=== PATIENT | male | born 1970 | race Caucasian/White ===

== ENCOUNTER 2019-10-10 14:17 | Inpatient (IN) | payer BC ==
[~2019-10-10] VITALS: Ht 175.3 cm; Wt 108.2 kg
[2019-10-10] MEDS ORDERED: OMEPRAZOLE MAGN20 M1 PO (14:55)
[2019-10-10] MEDS ORDERED: AMLODIPINE BESYL5 MG PO (14:55)
[2019-10-10] MEDS ORDERED: ZESTRIL40 M1 PO (14:55)
[2019-10-10] MEDS ORDERED: EUTHYROX75 MC1 PO (14:56)
[2019-10-10] MEDS ORDERED: FENO160 PO (14:56)
--- NOTE | 2019-10-10 18:17 | NUR ---
PT ARRIVED TO ROOM PCU 7 AT 1705. ECHO DONE UPON ARRIVAL. DR RAJAN IN ROOM AT 1745. ASSESSMENT AND ADMISSION COMPLETED AT 1815. DINNER HERE ALSO AT 1815. FAMNILY AT BEDSIDE. ASSMENT NOTED. PT DENIES PN, NO COMPLAINTS AT THIS TIME. NO NEEDS, ORIENTED TO ROOM. CALL LIGHT IN [place]ach.
--- NOTE | 2019-10-10 19:23 | NUR ---
NO CHANGES SINCE ARRIVAL. PT ATE DINNER. SPOUSE HAD DINNER DELIVERED FOR HERSELF AND CHILDREN. STILL EATING WHEN BEDSIDE REPORT GIVEN TO DOMENICA ROJAS. CALL [facility] IN [place]ACH.
[2019-10-10 21:38] LABS: BASOPHILS ABSOLUTE AUTO 0.07 K/mm3 (0.00-0.23); BASOPHILS PERCENT AUTO 1 % (0-2); EOSINOPHILS ABSOLUTE AUTO 0.13 K/mm3 (0.00-0.68); EOSINOPHILS PERCENT AUTO 2 % (0-6); Hematocrit 45.8 % (37.0-53.0); Hemoglobin 15.6 g/dL (13.5-17.5); IMMATURE GRAN ABSOLUTE AUTO 0.03 K/mm3 (0.00-0.10); IMMATURE GRAN PERCENT AUTO 0 % (0-1); LYMPHOCYTES PERCENT AUTO 36 % (21-46); MONOCYTES PERCENT AUTO 10 % (4-13); Mean Corpuscular HGB 31.1 pg (26.0-34.0); Mean Corpuscular HGB Conc 34.1 g/dL (31.5-36.5); Mean Corpuscular Volume 91 fL (80-100); Mean Platelet Volume 10.2 fL (9.1-12.4); NEUTROPHILS ABSOLUTE AUTO 4.08 K/mm3 (1.96-9.15); NEUTROPHILS PERCENT AUTO 51 % (41-73); Platelet Count 252 K/mm3 (150-400); RDW Coefficient Variation 12.3 % (11.7-14.2); RDW Standard Deviation 41.4 fL (35.1-46.3); Red Blood Cell Count 5.02 M/mm3 (4.30-5.90); White Blood Cell Count 8.01 K/mm3 (4.00-11.30)
[2019-10-10 21:53] LABS: Alanine Aminotransfer (ALT/SGP 47 U/L (12-78); Albumin, Blood 4.2 g/dL (3.4-5.0); Albumin/Globulin Ratio 1.2 (0.8-1.8); Alk Phos 47 U/L (50-136); Anion Gap 8 mmol/L (6-16); Aspartate Aminotrans (AST/SGOT 25 U/L (12-37); Bilirubin, Total 0.5 mg/dL (0.1-1.0); Blood Urea Nitrogen 20 mg/dL (8-24); Bun/Creatinine Ratio 17.4 (12.0-20.0); CO2, Blood 24 mmol/L (21-32); Calcium, Blood 9.1 mg/dL (8.5-10.1); Chloride, Blood 105 mmol/L (98-108); Creatinine, Blood 1.15 mg/dL (0.60-1.20); Globulin, Blood 3.5 g/dL (2.2-4.0); Glomerular Filtration Rate >60 (60-); Glucose, Blood 105 mg/dL (70-99); Potassium, Blood 3.9 mmol/L (3.5-5.5); Sodium, Blood 137 mmol/L (136-145); Total Protein, Blood 7.7 g/dL (6.4-8.2)
[2019-10-10 21:55] LABS: International Normalized Ratio 1.04; Prothrombin Time Results 11.1 Sec (9.7-11.5)
[2019-10-11 04:28] LABS: BASOPHILS ABSOLUTE AUTO 0.08 K/mm3 (0.00-0.23); BASOPHILS PERCENT AUTO 1 % (0-2); EOSINOPHILS ABSOLUTE AUTO 0.14 K/mm3 (0.00-0.68); EOSINOPHILS PERCENT AUTO 2 % (0-6); Hematocrit 46.7 % (37.0-53.0); Hemoglobin 15.7 g/dL (13.5-17.5); IMMATURE GRAN ABSOLUTE AUTO 0.03 K/mm3 (0.00-0.10); IMMATURE GRAN PERCENT AUTO 0 % (0-1); LYMPHOCYTES ABSOLUTE AUTO 3.65 K/mm3 (0.84-5.20); LYMPHOCYTES PERCENT AUTO 45 % (21-46); MONOCYTES ABSOLUTE AUTO 0.69 K/mm3 (0.16-1.47); MONOCYTES PERCENT AUTO 8 % (4-13); Mean Corpuscular HGB 30.7 pg (26.0-34.0); Mean Corpuscular HGB Conc 33.6 g/dL (31.5-36.5); Mean Corpuscular Volume 91 fL (80-100); Mean Platelet Volume 10.2 fL (9.1-12.4); NEUTROPHILS ABSOLUTE AUTO 3.61 K/mm3 (1.96-9.15); NEUTROPHILS PERCENT AUTO 44 % (41-73); Platelet Count 257 K/mm3 (150-400); RDW Coefficient Variation 12.4 % (11.7-14.2); RDW Standard Deviation 41.3 fL (35.1-46.3); Red Blood Cell Count 5.12 M/mm3 (4.30-5.90)
[2019-10-11 04:45] LABS: Alanine Aminotransfer (ALT/SGP 45 U/L (12-78); Albumin, Blood 3.9 g/dL (3.4-5.0); Albumin/Globulin Ratio 1.1 (0.8-1.8); Alk Phos 47 U/L (50-136); Anion Gap 6 mmol/L (6-16); Aspartate Aminotrans (AST/SGOT 25 U/L (12-37); Bilirubin, Total 0.6 mg/dL (0.1-1.0); Blood Urea Nitrogen 19 mg/dL (8-24); CHOL/HDL RATIO 4.3; CO2, Blood 26 mmol/L (21-32); Chloride, Blood 106 mmol/L (98-108); Cholesterol 156 mg/dL (50-200); Creatinine, Blood 1.19 mg/dL (0.60-1.20); Globulin, Blood 3.5 g/dL (2.2-4.0); Glomerular Filtration Rate >60 (60-); Glucose, Blood 108 mg/dL (70-99); HDL Cholesterol 36 mg/dL (>39); LDL/HDL RATIO 2.2; Low Density Lipoprotein Chol 81 mg/dL (0-110); Potassium, Blood 4.2 mmol/L (3.5-5.5); Sodium, Blood 138 mmol/L (136-145); Total Protein, Blood 7.4 g/dL (6.4-8.2); Triglycerides 197 mg/dL (30-160); Very Low Density Lipoprot Chol 39 mg/dL (6-32)
--- NOTE | 2019-10-11 05:47 | NUR ---
SHIFT SUMMARY PT VSS THROUGHOUT SHIFT. PT NIRAV THIS AM INTO 30'S. PT ASYMPTOMATIC. PT ALERT AND ORIENTED WHEN AWAKE. INDEPENDENT IN ROOM. PLAN FOR STRESS TESTS TODAY. HEPARIN INFUSING PER PHARMACY.
--- NOTE | 2019-10-11 10:25 | NUR ---
AM MEDS GIVEN. PT DECLINED STOOL SOFTNERS. INFORMED TO NOTIFY RN IF "EXTRA HELP" IS NEEDED FOR BM. LIPITOR INCREASED. PREV DAILY HS DOSE GIVEN LAST ANIGHT, ORDER DOSE CHANGE UPDATED TO HS DISCUSSED WITH GOLD LETTERER AND DIRECTOR.
--- NOTE | 2019-10-11 19:41 | NUR ---
SHIFT SUMMARY PT HAD A VERY EVENTFUL AFTERNOON. TITRATED DOWN TO 50% FROM 70% ON FIO2, USED CALL LIGHT TO REPORT "HAVING A HARD TIME BREATHING" CALL TO KRISTI, INCREASED FIO2 TO 55% THEN 60% AFTER ALSO REPOSITIONING AND AFTER SEVERAL MIN SATS WERE STILL 85-86%. HEPARIN ORDERED MISSED, CLIF AWARE. BOLUS GIVEN AND GTT STARTED FOR POSSIBLE PE. AFTER SPEAKING WITH DOCTORS, PT CALLED TO REPORT LEFT LEG PAIN, DR. RAJAN INFORMED. TROPONIN CRIT THIS AFTERNOON WELL. PT WAS PLACED ON NS FOR KIDNEY FAILURE DESPITE BNP. FELDER CATH PLACED FOR STRICT I&O'S. NEW IV 20G IN LW FOR HEP GTT. PT RICARDO ALL OF THIS WELL WITH PLEASANT, COOPERATIVE DEMEANER AND SENSE OF HUMOR. BEDSIDE REPORT GIVEN TO MUSHTAQ RN AND MADIHA ROJAS. CALL LIGHT IN REACH. HIGH FLOW NC IN REACH AT 10L FOR 4MIN TOLERATION OFF BIPAP.
--- NOTE | 2019-10-11 19:45 | NUR ---
ASSUMED CARE OF PT. IN NO ACUTE DISTRESS. RESTING COMFORTABLY AT THIS TIME. DENIES ANY NEEDS AT THIS TIME. CALL LIGHT AND POSSESSIONS IN REACH, WILL CONTINUE TO MONITOR.
--- NOTE | 2019-10-11 19:52 | NUR ---
PT HAD UNEVENTFUL DAY. ALL TESTS NEG. FAMILY AT BEDSIDE AWAITING RESULTS. DR TURNER CALLED AT SHIFT CHANGE HAPPILY AGREED TO COME TALK TO PT AND FAMILY. CLOSURE WITH MANY QUESTIONS. TR BAND REMAINS INTACT NO S/S BLEEDING. 3CC REMOVED. BOARD IN PLACE. PT NEEDS FOOD IN ORDER TO SWALLOW PILLS. INFORMATION PASSED ON IN BEDSIDE REPORT TO MUSHTAQ ROJAS AND MADIHA ROJAS.
--- NOTE | 2019-10-11 19:55 | NUR ---
ASSUMED CARE OF PT. IN NO ACUTE DISTRESS AT THIS TIME. DENIES ANY NEEDS AT THIS TIME. CALL LIGHT AND POSSESSIONS IN REACH. WILL CONTINUE TO MONITOR.
--- NOTE | 2019-10-11 20:35 | NUR ---
DR. NOLASCO IN TO SEE PT. ORDERS RECEIVED.
--- NOTE | 2019-10-11 22:25 | NUR ---
UPDATE ALL AIR REMOVED FROM TR BAND AT APPROX 2210. NO SIGNS OF BLEEDING OR BRUISING NOTED AT SITE AT THIS TIME. PATIENT DENIES ANY N/T OR PAIN IN FINGERS. WILL CONTINUE TO MONITOR PATIENT.
--- NOTE | 2019-10-12 01:00 | NUR ---
UPDATE TR BAND REMOVED AT APPROX 0040. TEGADERM AND ARMBOARD IN PLACE. PATIENT PROVIDED WITH ANGIO EDUCATION AND MOVEMENT RESTRICTIONS.
[2019-10-12 03:56] LABS: BASOPHILS ABSOLUTE AUTO 0.06 K/mm3 (0.00-0.23); BASOPHILS PERCENT AUTO 1 % (0-2); EOSINOPHILS ABSOLUTE AUTO 0.16 K/mm3 (0.00-0.68); EOSINOPHILS PERCENT AUTO 2 % (0-6); Hematocrit 47.2 % (37.0-53.0); Hemoglobin 16.2 g/dL (13.5-17.5); IMMATURE GRAN ABSOLUTE AUTO 0.04 K/mm3 (0.00-0.10); IMMATURE GRAN PERCENT AUTO 1 % (0-1); LYMPHOCYTES ABSOLUTE AUTO 3.05 K/mm3 (0.84-5.20); LYMPHOCYTES PERCENT AUTO 38 % (21-46); MONOCYTES ABSOLUTE AUTO 0.68 K/mm3 (0.16-1.47); MONOCYTES PERCENT AUTO 8 % (4-13); Mean Corpuscular HGB 31.3 pg (26.0-34.0); Mean Corpuscular HGB Conc 34.3 g/dL (31.5-36.5); Mean Corpuscular Volume 91 fL (80-100); Mean Platelet Volume 10.3 fL (9.1-12.4); NEUTROPHILS PERCENT AUTO 51 % (41-73); Platelet Count 252 K/mm3 (150-400); RDW Coefficient Variation 12.3 % (11.7-14.2); RDW Standard Deviation 40.9 fL (35.1-46.3); Red Blood Cell Count 5.18 M/mm3 (4.30-5.90); White Blood Cell Count 8.09 K/mm3 (4.00-11.30)
[2019-10-12 04:20] LABS: Anion Gap 9 mmol/L (6-16); Blood Urea Nitrogen 19 mg/dL (8-24); Bun/Creatinine Ratio 16.7 (12.0-20.0); CO2, Blood 23 mmol/L (21-32); Calcium, Blood 9.1 mg/dL (8.5-10.1); Chloride, Blood 106 mmol/L (98-108); Creatinine, Blood 1.14 mg/dL (0.60-1.20); Glomerular Filtration Rate >60 (60-); Glucose, Blood 99 mg/dL (70-99); Potassium, Blood 3.9 mmol/L (3.5-5.5); Sodium, Blood 138 mmol/L (136-145)
--- NOTE | 2019-10-12 07:43 | NUR ---
PT RESTING IN BED COMFORTABLY, IN NO ACUTE DISTRESS. WAS MONITORED EVERY 1-2 HOURS WITH NEEDS MET. DENIES ANY NEEDS AT THIS TIME. HAD AN UNEVENTFUL NIGHT WITH NO C/O CP. CALL LIGHT AND POSSESSIONS IN REACH, BED IN LOW POSITION.
--- NOTE | 2019-10-12 08:00 | NUR ---
AM ASSESSMENT: PT A+OX3. PLEASANT AND COOPERATIVE WITH CARE. PT'S SPOUSE AT THE BEDSIDE. PT IS EAGER TO BE DISCHARGE HOME TODAY POTENTIALLY. LUNGS ARE CLEAR T/O BILATERALLY, SLIGHLTY DIM IN THE BILAT BASES. SP02 SATS >90% ON RA. PT REPORTS A MILD, DULL ACHE IN CENTER OF CHEST, WHICH HE REPORTS IS UNCHANGED SINCE ADMIT. PT HAS TRACE BILATERAL ANKLE EDEMA PRESENT. PT VOIDING PER URINAL. NO VOID YET THIS AM.
--- NOTE | 2019-10-12 09:30 | NUR ---
DR SANDOVAL IN TO ASSESS PT. WILL RECHECK TROPONIN AND PT PENDING DISCHARGE BASED OFF RESULTS. WILL CONTINUE TO FOLLOW. AWAITING DR ESPINOZA TO COME IN TO ASSESS PT.
[2019-10-12] MEDS ORDERED: ASPI325 PO ×2 (12:02→12:03)
[2019-10-12] MEDS ORDERED: COLCHICINE0.6 MG PO (12:14)
--- NOTE | 2019-10-12 12:27 | NUR ---
PT DISCHARGE: PT D/C'ING HOME TODAY. IV D/C'D BY SN. NEW MEDICATIONS CALLED INTO [facility] ON [address]. PROVIDED PT WITH INSTRUCTIONS TO FILL OUT FORM TO GET NEW PCP. WRITTEN VERBAL D/C INSTRUCTIONS GIVEN ON MEDS, FOLLOW UP APPTS, ACTIVITY RESTRICTIONS.
--- NOTE | 2019-10-12 12:49 | NUR ---
DISCHARGED 1245. DISCUSSED MEDICATION, FOLLOW UP APPOINTMENTS AND CARE POST CATHETERIZATION WITH RADIAL SITE. AMBULATED WITH PATIENT OFF UNIT TO HOSPITAL EXIT.
== END 2019-10-12 12:51 | disposition home or self-care (01) | DRG 287 ==
LOC: ER 14:17 → PCU 14:18 → ER 14:47 → PCU 14:47
PROVIDERS: Nurse Practitioner Acute Care; ADMIT Internal Medicine
PROC: 4A023N7 Measurement of Cardiac Sampling and Pressure, Left Heart, Percutaneous Approach (ICD-10-PCS; principal; 2019-10-11)
PROC: B2111ZZ Fluoroscopy of Multiple Coronary Arteries using Low Osmolar Contrast (ICD-10-PCS; 2019-10-11)
DX: I31.9 Disease of pericardium, unspecified (principal); E03.9 Hypothyroidism, unspecified; E78.5 Hyperlipidemia, unspecified; E66.9 Obesity, unspecified; I10 Essential (primary) hypertension; Z79.82 Long term (current) use of aspirin; Z68.35 Body mass index [BMI] 35.0-35.9, adult; Z87.891 Personal history of nicotine dependence
CPT/HCPCS: 36415; 71260; 80048; 80053; 80061; 84484; 85025; 85347; 85610; 85651; 85730; 86140; 93005; 93010; 93306; 93458; 96372; 96374; 96376; 99152; 99153; 99285-25; C1769; C1894; G0378; J1644; J2250; J3010; J7030; Q9967

== ENCOUNTER → 2019-10-10 | Outpatient (CLI) | payer BC ==
[~2019-10-10] MED LIST: AMLODIPINE BESYL5 MG PO; ASPI325 PO; COLCHICINE0.6 MG PO; EUTHYROX75 MC1 PO; FENO160 PO; OMEPRAZOLE MAGN20 M1 PO; ZESTRIL40 M1 PO
[2019-10-10 13:37] LABS: BASOPHILS ABSOLUTE AUTO 0.07 K/mm3 (0.00-0.23); BASOPHILS PERCENT AUTO 1 % (0-2); EOSINOPHILS PERCENT AUTO 1 % (0-6); Hematocrit 47.4 % (37.0-53.0); Hemoglobin 16.7 g/dL (13.5-17.5); IMMATURE GRAN ABSOLUTE AUTO 0.03 K/mm3 (0.00-0.10); IMMATURE GRAN PERCENT AUTO 0 % (0-1); LYMPHOCYTES ABSOLUTE AUTO 2.76 K/mm3 (0.84-5.20); LYMPHOCYTES PERCENT AUTO 37 % (21-46); MONOCYTES ABSOLUTE AUTO 0.58 K/mm3 (0.16-1.47); MONOCYTES PERCENT AUTO 8 % (4-13); Mean Corpuscular HGB 31.4 pg (26.0-34.0); Mean Corpuscular HGB Conc 35.2 g/dL (31.5-36.5); Mean Corpuscular Volume 89 fL (80-100); Mean Platelet Volume 10.9 fL (9.1-12.4); NEUTROPHILS ABSOLUTE AUTO 3.96 K/mm3 (1.96-9.15); NEUTROPHILS PERCENT AUTO 53 % (41-73); Platelet Count 319 K/mm3 (150-400); RDW Coefficient Variation 12.5 % (11.7-14.2); RDW Standard Deviation 40.6 fL (35.1-46.3); Red Blood Cell Count 5.32 M/mm3 (4.30-5.90)
[2019-10-10 13:54] LABS: Albumin, Blood 4.6 g/dL (3.4-5.0); Albumin/Globulin Ratio 1.4 (0.8-1.8); Bilirubin, Total 0.5 mg/dL (0.1-1.0); Bun/Creatinine Ratio 16.4 (12.0-20.0); Calcium, Blood 9.4 mg/dL (8.5-10.1); Creatinine, Blood 1.4 mg/dL (0.60-1.20); Globulin, Blood 3.4 g/dL (2.2-4.0); Potassium, Blood 3.9 mmol/L (3.5-5.5)
[2019-10-10 14:09] LABS: Troponin I 0.571 ng/mL (0.000-0.040)
== END | disposition home or self-care (01) ==
LOC: LAB EV 13:33 → LAB SHORT 13:33
PROVIDERS: Physician Assistant
DX: R07.9 Chest pain, unspecified (principal)
CPT/HCPCS: 80053; 83690; 84484; 85025; 85379

== ENCOUNTER 2022-12-30 06:31 | Day surgery (SDC) | payer OTHER ==
[~2022-12-30] VITALS: Ht 175.3 cm; Wt 98.8 kg
[~2022-12-30 06:31] MED LIST changes: +AMLODIPINE BESY10 MG PO; +ASPI81CH PO; +ATOR40TA PO; +CATAPRES0.1 MG PO; +HYDCHL25 PO; +PANT40 PO
--- NOTE | 2022-12-30 07:35 | NUR ---
Ambulatory in Day Surgery WITH STEADY GAIT. History, Chart, Medications and Allergies reviewed before start of procedure. Lungs clear T/O to Auscultation. Patient confirms NPO status and agrees with scheduled surgery. Pre-Op teaching done. Pt verbalizes understanding.
--- NOTE | 2022-12-30 08:19 | NUR ---
12/30/22 0819 Nestor Lu History, Chart, Medications and Allergies reviewed before start of procedure. MONITOR INTACT WITH CONTINUOUS PULSE OXIMETRY, CONTINUOUS END TITAL CO2, AND INTERMITTENT BLOOD PRESSURE. 3-LEAD EKG REVIEWED WITH PHYSICIAN PRIOR TO START OF PROCEDURE. O2 VIA POM INTACT THROUGHOUT SEDATION/PROCEDURE. DR ROD TO DO ANESTHESIA.
--- NOTE | 2022-12-30 09:10 | NUR ---
Discharge instructions reviewed with patient. Patient verbalizes understanding. Copy given to patient to take home. Patient States Post-Procedure ride home has been arranged. Discharged via wheelchair to private car for ride home.
== END 2022-12-30 23:04 | disposition home or self-care (01) ==
LOC: ORSCMMR 06:31 → ORD 08:00 → ORSCMMR 23:04
PROVIDERS: Internal Medicine Gastroenterology
PROC: 0DBN8ZX Excision of Sigmoid Colon, Via Natural or Artificial Opening Endoscopic, Diagnostic (ICD-10-PCS; principal; 2022-12-30 08:00)
DX: Z12.11 Encounter for screening for malignant neoplasm of colon (principal); K63.5 Polyp of colon; K64.8 Other hemorrhoids; K21.9 Gastro-esophageal reflux disease without esophagitis; I10 Essential (primary) hypertension; G47.33 Obstructive sleep apnea (adult) (pediatric); R77.8 Other specified abnormalities of plasma proteins; E03.9 Hypothyroidism, unspecified; E78.00 Pure hypercholesterolemia, unspecified; F17.210 Nicotine dependence, cigarettes, uncomplicated; E66.9 Obesity, unspecified; Z68.32 Body mass index [BMI] 32.0-32.9, adult; Z79.01 Long term (current) use of anticoagulants; Z79.899 Other long term (current) drug therapy
CPT/HCPCS: 88305; J2704; J7120

== ENCOUNTER → 2023-05-18 | Outpatient (CLI) | payer OTHER ==
[2023-05-18 20:39] LABS: Albumin, Blood 4.4 g/dL (3.4-5.0); Albumin/Globulin Ratio 1.3 (0.8-1.8); Bun/Creatinine Ratio 29.2 (12.0-20.0); Calcium, Blood 9.4 mg/dL (8.5-10.1); Creatinine, Blood 0.89 mg/dL (0.60-1.20); Globulin, Blood 3.5 g/dL (2.2-4.0); Potassium, Blood 4.1 mmol/L (3.5-5.5); Total Protein, Blood 7.9 g/dL (6.4-8.2)
== END ==
LOC: LAB SHORT 17:30 → LAB 17:30
PROVIDERS: Nurse Practitioner Family
DX: I10 Essential (primary) hypertension (principal)
CPT/HCPCS: 80053

== ENCOUNTER 2024-03-23 18:48 | Emergency (ER) | payer BC ==
[~2024-03-23] VITALS: Ht 177.8 cm; Wt 105.7 kg
[2024-03-23 20:45] VITALS: BP 125/77
== END 2024-03-23 21:35 | disposition home or self-care (01) ==
LOC: ER 18:48
DX: I49.3 Ventricular premature depolarization (principal); R79.89 Other specified abnormal findings of blood chemistry; I10 Essential (primary) hypertension; E78.00 Pure hypercholesterolemia, unspecified
CPT/HCPCS: 83880; 84484; 86140; 93005; 93010; 99284-25

== ENCOUNTER → 2024-03-23 | Outpatient (CLI) | payer BC ==
[2024-03-23 18:53] LABS: BASOPHILS ABSOLUTE AUTO 0.08 K/mm3 (0.00-0.23); BASOPHILS PERCENT AUTO 1 % (0-2); EOSINOPHILS PERCENT AUTO 1 % (0-6); Hematocrit 45.4 % (37.0-53.0); Hemoglobin 16.1 g/dL (13.5-17.5); IMMATURE GRAN ABSOLUTE AUTO 0.08 K/mm3 (0.00-0.10); IMMATURE GRAN PERCENT AUTO 1 % (0-1); LYMPHOCYTES ABSOLUTE AUTO 4.07 K/mm3 (0.84-5.20); LYMPHOCYTES PERCENT AUTO 31 % (21-46); MONOCYTES ABSOLUTE AUTO 1.02 K/mm3 (0.16-1.47); MONOCYTES PERCENT AUTO 8 % (4-13); Mean Corpuscular HGB 32.5 pg (26.0-34.0); Mean Corpuscular HGB Conc 35.5 g/dL (31.5-36.5); Mean Corpuscular Volume 92 fL (80-100); Mean Platelet Volume 10.1 fL (9.1-12.4); NEUTROPHILS PERCENT AUTO 60 % (41-73); Platelet Count 239 K/mm3 (150-400); RDW Coefficient Variation 12.5 % (11.7-14.2); RDW Standard Deviation 41.2 fL (35.1-46.3); Red Blood Cell Count 4.95 M/mm3 (4.30-5.90); White Blood Cell Count 13.25 K/mm3 (4.00-11.30)
[2024-03-23 19:09] LABS: Albumin, Blood 4.5 g/dL (3.4-5.0); Albumin/Globulin Ratio 1.3 (0.8-1.8); Bilirubin, Total 0.5 mg/dL (0.1-1.0); Bun/Creatinine Ratio 17.9 (12.0-20.0); Calcium, Blood 9.4 mg/dL (8.5-10.1); Creatinine, Blood 1.23 mg/dL (0.60-1.20); Globulin, Blood 3.6 g/dL (2.2-4.0); Potassium, Blood 3.5 mmol/L (3.5-5.5); Total Protein, Blood 8.1 g/dL (6.4-8.2)
== END | disposition home or self-care (01) ==
LOC: LAB 18:48 → LAB SHORT 18:48
PROVIDERS: Physician Assistant
DX: R06.02 Shortness of breath (principal)
CPT/HCPCS: 80053; 84484; 85025

== ENCOUNTER 2024-08-08 18:00 | Emergency (ER) | payer BC, OTHER ==
[~2024-08-08] VITALS: Ht 175.3 cm; Wt 103.4 kg
[2024-08-08 18:04] VITALS: BP 131/81
[2024-08-08] MEDS ORDERED: Clindamycin HCl 150 MG Cap PO ONE (19:50)
[2024-08-08] MEDS ORDERED: Cleocin HCl150 MG PO (20:09)
== END 2024-08-08 20:17 | disposition home or self-care (01) ==
LOC: ER 18:00
DX: S02.40CA Maxillary fracture, right side, initial encounter for closed fracture (principal); H53.8 Other visual disturbances; W20.8XXA Other cause of strike by thrown, projected or falling object, initial encounter; I10 Essential (primary) hypertension; I25.2 Old myocardial infarction; E03.9 Hypothyroidism, unspecified; Z79.890 Hormone replacement therapy; Z79.899 Other long term (current) drug therapy; Z88.0 Allergy status to penicillin; Z87.891 Personal history of nicotine dependence
CPT/HCPCS: 70486; 99283-25; A9270